=== PATIENT | female | born 1995 | race Caucasian/White ===

== ENCOUNTER 2017-05-05 22:54 | Emergency (ER) | payer MEDICAID ==
[2017-05-05 23:57] VITALS: BP 123/74
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
== END 2017-05-06 01:14 | disposition home or self-care (01) ==
LOC: JP.ED 22:54
DX: O99.89 Other specified diseases and conditions complicating pregnancy, childbirth and the puerperium (principal); M54.5 Low back pain; R10.30 Lower abdominal pain, unspecified; O99.52 Diseases of the respiratory system complicating childbirth; J45.909 Unspecified asthma, uncomplicated; O99.355 Diseases of the nervous system complicating the puerperium; G43.909 Migraine, unspecified, not intractable, without status migrainosus; O99.333 Smoking (tobacco) complicating pregnancy, third trimester; Z79.899 Other long term (current) drug therapy; Z3A.01 Less than 8 weeks gestation of pregnancy
CPT/HCPCS: 81001; 99284

== ENCOUNTER 2017-07-06 07:10 | Emergency (ER) | payer MEDICAID ==
[2017-07-06] MEDS ORDERED: Ondansetron 4 MG/2 ML SDV IVPUSH ONE (07:42)
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
[2017-07-06] MEDS ORDERED: HYDROmorphone 0.5 MG/0.5 ML Syringe IVPUSH ONE (07:44)
[2017-07-06] MEDS ORDERED: Sodium Chloride 0.9% 1,000 ML IV SCH (07:45)
[2017-07-06 09:07] VITALS: BP 99/55
== END 2017-07-06 09:05 | disposition home or self-care (01) ==
LOC: JP.ED 07:10
DX: O99.352 Diseases of the nervous system complicating pregnancy, second trimester (principal); G43.909 Migraine, unspecified, not intractable, without status migrainosus; O99.512 Diseases of the respiratory system complicating pregnancy, second trimester; J45.909 Unspecified asthma, uncomplicated; O99.332 Smoking (tobacco) complicating pregnancy, second trimester; F17.210 Nicotine dependence, cigarettes, uncomplicated; Z79.899 Other long term (current) drug therapy; Z3A.16 16 weeks gestation of pregnancy
CPT/HCPCS: 96361; 96374; 96375; 99284; J1170; J2405; J7040

== ENCOUNTER 2018-01-23 21:25 | Emergency (ER) | payer MEDICAID ==
[2018-01-23 21:53] VITALS: BP 118/71
--- NOTE | 2018-01-23 23:01 | EDM.PDOC ---
ED HPI GENERAL MEDICAL PROBLEM - General Chief Complaint: ENT Problem Stated Complaint: SORE THROAT Time Seen by Provider: 01/23/18 22:56 Source of Information: Reports: Patient History Limitations: Reports: No Limitations - History of Present Illness INITIAL COMMENTS - FREE TEXT/NARRATIVE: pt arrived with a sore throat and swollen glands. She states this started last nite. 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 Onset: Other (last nite. ) Duration: Hour(s): Location: Reports: Neck Associated Symptoms: Reports: Other (pt has a red spot on her left achilles tendon area which is red and tender, She has been having hives . She wonders if this could be a big hive. 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 unsure of her LMP 1-1/2 mo ago Musculoskeletal History: Reports: Back Pain, Chronic Neurological History: Reports: Migraines - Infectious Disease History Infectious Disease History: Reports: C-Difficile - Past Surgical History Musculoskeletal Surgical History: Reports: Other (See Below) Other Musculoskeletal Surgeries/Procedures:: R ULNAR AND RADIUS REPAIR Social & Family History - Tobacco Use Smoking Status *Q: Unknown Ever Smoked Years of Tobacco use: 5 Packs/Tins Daily: 0.5 Used Tobacco, but Quit: No Second Hand Smoke Exposure: Yes - Caffeine Use Caffeine Use: Reports: Soda - Alcohol Use Days Per Week of Alcohol Use: 0 - Recreational Drug Use Recreational Drug Use: No ED ROS ENT - Review of Systems Review Of Systems: See Below Constitutional: Reports: No Symptoms HEENT: Reports: Throat Pain Respiratory: Reports: No Symptoms Cardiovascular: Reports: No Symptoms Endocrine: Reports: No Symptoms GI/Abdominal: Reports: No Symptoms : Reports: No Symptoms Musculoskeletal: Reports: Other ( redness on the ankle. ) Neurological: Reports: No Symptoms ED EXAM, ENT - Physical Exam Exam: See Below Text/Narrative:: pt has a sore throat. She has a red spot on her left achilles area. Exam Limited By: No Limitations General Appearance: Alert, Moderate Distress Ears: Normal TMs Nose: Normal Inspection Mouth/Throat: Throat Pain, Tonsillar Erythema Head: Atraumatic Neck: Lymphadenopathy (R), Lymphadenopathy (L) Respiratory/Chest: No Respiratory Distress Cardiovascular: Regular Rate, Rhythm GI/Abdominal: Soft, Non-Tender (Female) Exam: Deferred Rectal (Female) Exam: Deferred Back: Normal Inspection Extremities: Normal Inspection Neurological: Alert, Oriented, Normal Cognition Psychiatric: Normal Affect Skin: Other ( pt has redness over the left achilles area. ) Course - Vital Signs Last Recorded V/S: Last Vital Signs Temp 36.8 C 01/23/18 21:56 Pulse 70 01/23/18 21:56 Resp 16 01/23/18 21:56 BP 118/71 01/23/18 21:56 Pulse Ox 98 01/23/18 21:56 - Orders/Labs/Meds Orders: Active Orders 24 hr Category Date Time Status CULTURE STREP A CONFIRMATION [] Stat Lab 01/23/18 22:19 Results STREP SCRN A RAPID W CULT CONF [] Stat Lab 01/23/18 22:19 Ordered Labs: Laboratory Tests 01/23/18 Range/Units 22:25 WBC 6.3 (4.5-11.0) K/uL RBC 4.95 (3.30-5.50) M/uL Hgb 12.9 (12.0-15.0) g/dL Hct 39.6 (36.0-48.0) % MCV 80 (80-98) fL MCH 26 L (27-31) pg MCHC 33 (32-36) % Plt Count 232 (150-400) K/uL Neut % (Auto) 46 (36-66) % Lymph % (Auto) 46 H (24-44) % [place] % (Auto) 7 H (2-6) % Eos % (Auto) 2 (2-4) % Baso % (Auto) 0 (0-1) % - Re-Assessments/Exams Free Text/Narrative Re-Assessment/Exam: 01/23/18 23:01 WBC IS 6,400, HER STREPT IS NEG. Departure - Departure Time of Disposition: 23:03 Disposition: Home, Self-Care 01 Condition: Fair Clinical Impression: Cellulitis of ankle, Acute pharyngitis - Discharge Information Referrals: PCP,None [Primary Care Provider] - Forms: ED Department Discharge Care Plan Goals: PUSH FLUIDS, WARM PACK RED AREA ON THE ANKLE, KEFLEX 500MG TID, - My Orders Last 24 Hours: My Active Orders 01/23/18 22:19 CULTURE STREP A CONFIRMATION [RM] Stat STREP SCRN A RAPID W CULT CONF [RM] Stat - Assessment/Plan Last 24 Hours: My Active Orders 01/23/18 22:19 CULTURE STREP A CONFIRMATION [RM] Stat STREP SCRN A RAPID W CULT CONF [RM] Stat
== END 2018-01-23 23:14 | disposition home or self-care (01) ==
LOC: JP.ED 21:25
DX: L03.116 Cellulitis of left lower limb (principal); J02.9 Acute pharyngitis, unspecified; Z77.22 Contact with and (suspected) exposure to environmental tobacco smoke (acute) (chronic)
CPT/HCPCS: 36415; 85025; 87081; 87430; 99283

== ENCOUNTER 2018-03-06 22:39 | Emergency (ER) | payer MEDICAID ==
[2018-03-06 22:51] VITALS: BP 133/82
--- NOTE | 2018-03-06 23:20 | EDM.PDOC ---
ED HPI GENERAL MEDICAL PROBLEM - General Chief Complaint: Lower Extremity Injury/Pain Stated Complaint: RIGHT FOOT SMALL LUMP Time Seen by Provider: 03/06/18 23:15 Source of Information: Reports: Patient History Limitations: Reports: No Limitations - History of Present Illness INITIAL COMMENTS - FREE TEXT/NARRATIVE: pt has a red area on the dorsum of the foot. This started some last nite but is worse today. She does not recall a bite or injury to the sit. The area of redness is about the size of a 50 cent piece. She is tender to palpate. Onset: Other (last nite. 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 unsure of her LMP 1-1/2 mo ago Musculoskeletal History: Reports: Back Pain, Chronic Neurological History: Reports: Migraines - Infectious Disease History Infectious Disease History: Reports: C-Difficile - Past Surgical History Musculoskeletal Surgical History: Reports: Other (See Below) Other Musculoskeletal Surgeries/Procedures:: R ULNAR AND RADIUS REPAIR Social & Family History - Tobacco Use Smoking Status *Q: Never Smoker - Caffeine Use Caffeine Use: Reports: None - Recreational Drug Use Recreational Drug Use: No Review of Systems - Review of Systems Review Of Systems: See Below Constitutional: Reports: No Symptoms Ears: Reports: No Symptoms Nose: Reports: No Symptoms Mouth/Throat: Reports: No Symptoms Respiratory: Reports: No Symptoms Cardiovascular: Reports: No Symptoms GI/Abdominal: Reports: No Symptoms Musculoskeletal: Reports: Other (painful lump on the dorsum of the rt foot. ) Skin: Reports: No Symptoms ED EXAM, GENERAL - Physical Exam Exam: See Below Free Text/Narrative:: pt arrived with a tender red area on the dorsum of the foot. This does feel warm Exam Limited By: No Limitations General Appearance: Alert, Mild Distress Ears: Normal TMs Nose: Normal Inspection Throat/Mouth: Normal Inspection Head: Atraumatic Neck: Normal Inspection Respiratory/Chest: No Respiratory Distress Cardiovascular: Regular Rate, Rhythm GI/Abdominal: Soft, Non-Tender Extremities: Other ( There is a red area on the dorsum of the rt foot that is warm and tender to palpate. She has a blanced area in the center which makes me think this could have been a bite. 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 ) Course - Vital Signs Last Recorded V/S: Last Vital Signs Temp 37.0 C 03/06/18 23:00 Pulse 80 03/06/18 23:00 Resp 13 03/06/18 23:00 BP 133/82 03/06/18 23:00 Pulse Ox 97 03/06/18 23:00 Departure - Departure Time of Disposition: 23:20 Disposition: Home, Self-Care 01 Condition: Fair Clinical Impression: Infected insect bite of right foot - Discharge Information Referrals: Milad Berumen MD [Primary Care Provider] - Care Plan Goals: soak foot bid in warm soapy solution followed by a cool pack, keflex 500mg tid, tylenol and motrin for pain.
== END 2018-03-06 23:35 | disposition home or self-care (01) ==
LOC: JP.ED 22:39
DX: S90.861A Insect bite (nonvenomous), right foot, initial encounter (principal); L08.9 Local infection of the skin and subcutaneous tissue, unspecified; W57.XXXA Bitten or stung by nonvenomous insect and other nonvenomous arthropods, initial encounter
CPT/HCPCS: 99283

== ENCOUNTER 2019-09-26 16:15 | Emergency (ER) | payer SELFPAY ==
[2019-09-26 16:27] VITALS: BP 138/88; PULSE 81
[2019-09-26] MEDS ORDERED: Acetaminophen 325 MG Tab PO ONE (17:03)
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
== END 2019-09-26 17:53 | disposition home or self-care (01) ==
LOC: JP.ED 16:15
DX: S50.02XA Contusion of left elbow, initial encounter (principal); S61.207A Unspecified open wound of left little finger without damage to nail, initial encounter; F17.210 Nicotine dependence, cigarettes, uncomplicated; J45.909 Unspecified asthma, uncomplicated; V89.2XXA Person injured in unspecified motor-vehicle accident, traffic, initial encounter
CPT/HCPCS: 73080; 99283; A9270

== ENCOUNTER 2020-12-27 03:34 | Emergency (ER) | payer MEDICAID ==
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
[2020-12-27] MEDS ORDERED: Sodium Chloride 0.9% 1,000 ML IV SCH (05:00)
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
[2020-12-27] MEDS ORDERED: levETIRAcetam 1,500 MG in Sodium Chloride 0.9% 100 ML IV ONE (05:15)
[2020-12-27] MEDS ORDERED: LORazepam 2 MG/ML SDV IVPUSH ONE (05:23)
[2020-12-27] MEDS ORDERED: LORazepam 2 MG/ML SDV ONE (05:24)
[2020-12-27 05:25] VITALS: BP 113/71; PULSE 94
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
== END 2020-12-27 05:53 ==
LOC: JP.ED 03:34
DX: O9A.211 Injury, poisoning and certain other consequences of external causes complicating pregnancy, first trimester (principal); S80.812A Abrasion, left lower leg, initial encounter; S80.811A Abrasion, right lower leg, initial encounter; Z3A.01 Less than 8 weeks gestation of pregnancy; V48.5XXA Car driver injured in noncollision transport accident in traffic accident, initial encounter
CPT/HCPCS: 36415; 51702; 70450; 71045; 71045-26; 72125; 80053; 80305-QW; 80307; 81001; 81025; 83690; 85025; 96365; 96375; 99291; 99291-25; J1953; J2060; J7030

== ENCOUNTER 2021-09-25 09:16 | Emergency (ER) | payer MEDICAID ==
[2021-09-25] MEDS ORDERED: Prochlorperazine 10 MG/2 ML SDV IVPUSH ONE (09:56)
[2021-09-25] MEDS ORDERED: diphenhydrAMINE 50 MG/ML SDV IVPUSH ONE (09:57)
[2021-09-25] MEDS ORDERED: Ketorolac 30 MG/ML SDV IVPUSH ONE (09:57)
[2021-09-25] MEDS ORDERED: Sodium Chloride 0.9% 1,000 ML IV SCH (10:00)
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
[2021-09-25] MEDS ORDERED: HYDROmorphone 0.5 MG/0.5 ML Syringe IVPUSH ONE (11:35)
[2021-09-25 12:04] VITALS: BP 103/73; PULSE 53
== END 2021-09-25 12:49 | disposition home or self-care (01) ==
LOC: JP.ED 09:16
DX: G43.909 Migraine, unspecified, not intractable, without status migrainosus (principal)
CPT/HCPCS: 96374; 96375; 99283-25; J0780; J1170; J1200; J1885; J7030

== ENCOUNTER 2022-01-27 23:48 | Emergency (ER) | payer MEDICAID ==
[2022-01-28 00:28] VITALS: BP 113/79; PULSE 62
[2022-01-28] MEDS ORDERED: Ketorolac 30 MG/ML SDV IM ONE (00:56)
[2022-01-28 01:21] LABS: CORONAVIRUS COVID-19 NAA POSITIVE (NEGATIVE)
== END 2022-01-28 02:01 | disposition home or self-care (01) ==
LOC: JP.ED 23:48
DX: U07.1 COVID-19 (principal); G43.909 Migraine, unspecified, not intractable, without status migrainosus
CPT/HCPCS: 0241U; 96372; 99281; 99284; J1885

== ENCOUNTER 2022-04-27 22:55 | Emergency (ER) | payer MEDICAID ==
[2022-04-28 00:22] LABS: ESTIMATED GFR 104 mL/min (>60)
[2022-04-28 01:00] VITALS: BP 106/79; PULSE 85
== END 2022-04-28 00:34 | disposition home or self-care (01) ==
LOC: JP.ED 22:55
DX: R10.11 Right upper quadrant pain (principal); Z72.0 Tobacco use
CPT/HCPCS: 36415; 80053; 81001; 81025; 85025; 99284

== ENCOUNTER 2022-11-19 15:45 | Emergency (ER) | payer OTHER, MEDICAID ==
[2022-11-19 16:23] VITALS: BP 123/83; PULSE 52
== END 2022-11-19 17:37 | disposition home or self-care (01) ==
LOC: JP.ED 15:45
DX: S69.92XA Unspecified injury of left wrist, hand and finger(s), initial encounter (principal); J45.909 Unspecified asthma, uncomplicated; Z72.0 Tobacco use; W27.3XXA Contact with needle (sewing), initial encounter; Y92.129 Unspecified place in nursing home as the place of occurrence of the external cause; Y99.0 Civilian activity done for income or pay
CPT/HCPCS: 86317; 86803; 87340; 87449; 99282; 99283

== ENCOUNTER 2023-01-18 14:51 | Emergency (ER) | payer OTHER, MEDICAID ==
[2023-01-18 15:17] VITALS: BP 121/76; PULSE 59
[2023-01-18] MEDS ORDERED: Ketorolac 30 MG/ML SDV IM ONE (15:27)
[2023-01-18 16:07] LABS: ESTIMATED GFR 104 mL/min (>60)
== END 2023-01-18 17:04 | disposition home or self-care (01) ==
LOC: JP.ED 14:51
DX: S20.219A Contusion of unspecified front wall of thorax, initial encounter (principal); J45.909 Unspecified asthma, uncomplicated; V49.10XA Passenger injured in collision with unspecified motor vehicles in nontraffic accident, initial encounter; Y92.410 Unspecified street and highway as the place of occurrence of the external cause
CPT/HCPCS: 36415; 80053; 83605; 85025; 96372; 99284; J1885

== ENCOUNTER 2023-04-16 19:01 | Emergency (ER) | payer MEDICAID ==
[2023-04-16 20:59] VITALS: BP 124/73; PULSE 58
== END 2023-04-16 21:56 | disposition home or self-care (01) ==
LOC: JP.ED 19:01
DX: S01.81XA Laceration without foreign body of other part of head, initial encounter (principal); J45.909 Unspecified asthma, uncomplicated; F17.210 Nicotine dependence, cigarettes, uncomplicated; W22.8XXA Striking against or struck by other objects, initial encounter
CPT/HCPCS: 12011; 99282

== ENCOUNTER 2023-05-09 20:17 | Emergency (ER) | payer MEDICAID ==
[2023-05-09 20:59] VITALS: BP 131/91; PULSE 57
== END 2023-05-09 22:57 | disposition home or self-care (01) ==
LOC: JP.ED 20:17
DX: S93.601A Unspecified sprain of right foot, initial encounter (principal); J45.909 Unspecified asthma, uncomplicated; W20.8XXA Other cause of strike by thrown, projected or falling object, initial encounter
CPT/HCPCS: 73620-26-RT; 73620-RT; 99282; 99283

== ENCOUNTER 2023-10-19 17:19 | Emergency (ER) | payer MEDICAID, OTHER ==
[2023-10-19 17:38] VITALS: BP 114/74; PULSE 83
[2023-10-19] MEDS ORDERED: Ondansetron 4 MG/2 ML SDV IVPUSH ONE (18:15)
[2023-10-19] MEDS ORDERED: Sodium Chloride 0.9% 1,000 ML IV SCH (18:15)
[2023-10-19] MEDS ORDERED: LORazepam 2 MG/ML SDV IVPUSH ONE (18:16)
[2023-10-19 18:27] LABS: BASOPHILS PERCENT AUTO 0.2 % (0.1-1.3); EOSINOPHILS ABSOLUTE AUTO 0.07 K/uL (0.00-0.40); EOSINOPHILS PERCENT AUTO 0.9 % (0.0-5.4); HEMATOCRIT 43.2 % (34.3-46.0); HEMOGLOBIN 15.4 g/dL (11.2-15.5); IMMATURE GRAN PERCENT AUTO 0.2 % (0.0-0.7); LYMPHOCYTES ABSOLUTE AUTO 0.78 K/uL (0.8-3.3); LYMPHOCYTES PERCENT AUTO 9.6 % (11.4-47.7); MEAN CORPUSCULAR HEMOGLOBIN 30.4 pg (31.6-35.5); MEAN CORPUSCULAR HGB CONC 35.6 g/dL (31.6-35.5); MEAN CORPUSCULAR VOLUME 85.4 fL (81.4-99.0); MONOCYTES ABSOLUTE AUTO 0.36 K/uL (0.20-0.90); MONOCYTES PERCENT AUTO 4.4 % (3.3-12.6); NEUTROPHILS ABSOLUTE AUTO 6.89 K/uL (1.0-7.6); NEUTROPHILS PERCENT AUTO 84.7 % (40.0-78.1); PLATELET COUNT,PLT 222 K/uL (130-375); RED BLOOD CELL COUNT 5.06 M/uL (3.77-5.24); WHITE BLOOD CELL COUNT,WBC 8.1 K/uL (3.2-11.0)
[2023-10-19 18:28] LABS: BASOPHILS ABSOLUTE AUTO 0.02 K/uL (0.00-0.10); IMMATURE GRAN ABSOLUTE AUTO 0.02 K/uL (0.00-0.23)
[2023-10-19 18:47] LABS: A/G RATIO 1.5 (1.2-2.2); ALANINE AMINOTRANSFERASE,ALT 33 U/L (12-78); ALBUMIN 4.5 g/dL (3.4-5.0); ALKALINE PHOSPHATASE 48 U/L (46-116); ASPARTATE AMNIOTRANSFERASE,AST 23 U/L (15-37); BILIRUBIN TOTAL 1.8 mg/dL (0.2-1.0); BLOOD UREA NITROGEN,BUN 12 mg/dL (7-18); CALCIUM 8.8 mg/dL (8.5-10.1); CARBON DIOXIDE,CO2 24 mmol/L (21-32); CHLORIDE,CL 100 mmol/L (100-108); CREATININE 0.7 mg/dL (0.6-1.0); EST CRCL DRUG DOSING (CG) 86.44 mL/min; ESTIMATED GFR 121 mL/min (>60); GLUCOSE RANDOM 101 mg/dL (74-106); POTASSIUM,K 3.5 mmol/L (3.6-5.2); PROTEIN TOTAL,TP 7.6 g/dL (6.4-8.2); SODIUM,NA 136 mmol/L (140-148)
[2023-10-19 18:52] LABS: ANION GAP 15.5 mmol/L (5.0-14.0)
[2023-10-19 18:54] LABS: APPEARANCE,URINE CLEAR (CLEAR); BILIRUBIN,URINE NEGATIVE (NEGATIVE); COLOR,URINE YELLOW (YELLOW); GLUCOSE,URINE NEGATIVE (NEGATIVE); KETONES,URINE 40 mg/dL (NEGATIVE); LEUKOCYTE ESTERASE,URINE NEGATIVE (NEGATIVE); NITRITE,URINE NEGATIVE (NEGATIVE); OCCULT BLOOD,URINE NEGATIVE (NEGATIVE); PROTEIN,URINE NEGATIVE (NEGATIVE); UROBILINOGEN,URINE 0.2 EU/dL (0.2-1.0)
[2023-10-19 19:10] LABS: BACTERIA,URINE RARE; EPITHELIAL CELLS,URINE RARE; RBC,URINE 0-5 (0-5); WBC,URINE NOT SEEN (0-5)
[2023-10-19 19:11] LABS: AMORPHOUS SEDIMENT,URINE NOT SEEN; MUCUS,URINE RARE
[2023-10-19 19:28] LABS: CORONAVIRUS COVID-19 NAA NEGATIVE (NEGATIVE); INFLUENZA A NAA NEGATIVE (NEGATIVE); INFLUENZA B NAA NEGATIVE (NEGATIVE); RESPIRATORY SYNCYTIAL VIR NAA NEGATIVE (NEGATIVE)
== END 2023-10-19 20:34 | disposition home or self-care (01) ==
LOC: JP.ED 17:19
DX: E86.0 Dehydration (principal); B34.9 Viral infection, unspecified; Z20.822 Contact with and (suspected) exposure to COVID-19
CPT/HCPCS: 0241U; 36415; 80053; 81001; 85025; 96361; 96374; 96375; 99284; J2060; J2405; J7030

== ENCOUNTER 2024-03-29 00:33 | Emergency (ER) | payer MEDICAID ==
[2024-03-29 00:41] VITALS: BP 119/83; PULSE 83
== END 2024-03-29 02:08 | disposition home or self-care (01) ==
LOC: JP.ED 00:33
DX: B27.90 Infectious mononucleosis, unspecified without complication (principal); Z86.16 Personal history of COVID-19
CPT/HCPCS: 87651-QW; 99283

== ENCOUNTER 2025-04-23 08:32 | Emergency (ER) | payer MEDICAID ==
[2025-04-23] MEDS: Ondansetron 4 MG/2 ML SDV IVPUSH ONE (09:38)
[2025-04-23 11:55] VITALS: BP 107/74; PULSE 57
== END 2025-04-23 12:13 | disposition home or self-care (01) ==
LOC: JP.ED 08:32
DX: O21.9 Vomiting of pregnancy, unspecified (principal); F17.200 Nicotine dependence, unspecified, uncomplicated; Z79.899 Other long term (current) drug therapy; Z3A.09 9 weeks gestation of pregnancy; Z86.16 Personal history of COVID-19
CPT/HCPCS: 96361; 96374; 99283; J2405; J7030

== ENCOUNTER 2025-05-06 04:53 | Emergency (ER) | payer MEDICAID ==
[2025-05-06 05:00] VITALS: BP 131/96; PULSE 58
== END 2025-05-06 06:10 | disposition home or self-care (01) ==
LOC: JP.ED 04:53
DX: G43.909 Migraine, unspecified, not intractable, without status migrainosus (principal); Z79.899 Other long term (current) drug therapy; Z86.16 Personal history of COVID-19
CPT/HCPCS: 96372; 99283; J2765

== ENCOUNTER 2025-07-24 07:56 | Emergency (ER) | payer MEDICAID ==
[2025-07-24 08:09] VITALS: BP 109/65; PULSE 69
== END 2025-07-24 08:58 | disposition home or self-care (01) ==
LOC: JP.ED 07:56
DX: R51.9 Headache, unspecified (principal); K21.9 Gastro-esophageal reflux disease without esophagitis; Z79.899 Other long term (current) drug therapy; Z86.16 Personal history of COVID-19; Z87.891 Personal history of nicotine dependence
CPT/HCPCS: 99283

== ENCOUNTER 2025-07-24 15:45 | Emergency (ER) | payer MEDICAID ==
[2025-07-24] MEDS: diphenhydrAMINE 50 MG/ML SDV IVPUSH ONE (16:45)
[2025-07-24 17:39] VITALS: BP 112/75; PULSE 71
== END 2025-07-24 18:00 | disposition home or self-care (01) ==
LOC: JP.ED 15:45
DX: G44.89 Other headache syndrome (principal); J45.909 Unspecified asthma, uncomplicated; K21.9 Gastro-esophageal reflux disease without esophagitis; Z86.16 Personal history of COVID-19; Z79.899 Other long term (current) drug therapy
CPT/HCPCS: 96361; 96374; 96375; 99283; J1200; J1790; J7030

== ENCOUNTER 2025-10-17 03:54 | Emergency (ER) | payer MEDICAID ==
[2025-10-17] MEDS: Alum Hydrox/Mag Hydrox/Simeth 15 ML, Lidocaine 2% 15 ML PO ONE (04:47)
[2025-10-17 04:55] LABS: BASOPHILS PERCENT AUTO 0.2 % (0.1-1.3); EOSINOPHILS PERCENT AUTO 0.2 % (0.0-5.4); IMMATURE GRAN PERCENT AUTO 0.4 % (0.0-0.7); LYMPHOCYTES ABSOLUTE AUTO 0.51 K/uL (0.8-3.3); LYMPHOCYTES PERCENT AUTO 9.6 % (11.4-47.7); MONOCYTES ABSOLUTE AUTO 0.22 K/uL (0.20-0.90); MONOCYTES PERCENT AUTO 4.1 % (3.3-12.6); NEUTROPHILS ABSOLUTE AUTO 4.54 K/uL (1.0-7.6); NEUTROPHILS PERCENT AUTO 85.5 % (40.0-78.1); PLATELET COUNT,PLT 172 K/uL (130-375); RED BLOOD CELL COUNT 3.79 M/uL (3.77-5.24); WHITE BLOOD CELL COUNT,WBC 5.3 K/uL (3.2-11.0)
[2025-10-17] MEDS: Ondansetron 4 MG/2 ML SDV IVPUSH ONE (04:57)
[2025-10-17 05:07] LABS: BASOPHILS ABSOLUTE AUTO 0.01 K/uL (0.00-0.10); EOSINOPHILS ABSOLUTE AUTO 0.01 K/uL (0.00-0.40); IMMATURE GRAN ABSOLUTE AUTO 0.02 K/uL (0.00-0.23)
[2025-10-17 05:16] LABS: A/G RATIO 0.7 (1.2-2.2); ALANINE AMINOTRANSFERASE,ALT 19 U/L (12-78); ASPARTATE AMNIOTRANSFERASE,AST 23 U/L (15-37); BILIRUBIN TOTAL 0.8 mg/dL (0.2-1.0); BLOOD UREA NITROGEN,BUN 7 mg/dL (7-18); CARBON DIOXIDE,CO2 24 mmol/L (21-32); CHLORIDE,CL 106 mmol/L (100-108); CREATININE 0.4 mg/dL (0.6-1.0); EST CRCL DRUG DOSING (CG) 149.06 mL/min; ESTIMATED GFR 137 mL/min (>60); GLUCOSE RANDOM 90 mg/dL (74-106); POTASSIUM,K 3.3 mmol/L (3.6-5.2); PROTEIN TOTAL,TP 6.0 g/dL (6.4-8.2); SODIUM,NA 139 mmol/L (140-148)
[2025-10-17 05:29] VITALS: BP 97/66; PULSE 83
[2025-10-17 05:31] LABS: APPEARANCE,URINE CLEAR (CLEAR); GLUCOSE,URINE NEGATIVE (NEGATIVE); OCCULT BLOOD,URINE NEGATIVE (NEGATIVE)
[2025-10-17 05:43] LABS: SQUAMOUS EPITHELIAL CELLS,UR FEW /HPF; UROTHELIAL CELLS,URINE NOT SEEN /HPF
== END 2025-10-17 06:06 | disposition home or self-care (01) ==
LOC: JP.ED 03:54
DX: O99.613 Diseases of the digestive system complicating pregnancy, third trimester (principal); K21.9 Gastro-esophageal reflux disease without esophagitis; O99.891 Other specified diseases and conditions complicating pregnancy; R07.9 Chest pain, unspecified; Z79.899 Other long term (current) drug therapy; Z3A.36 36 weeks gestation of pregnancy
CPT/HCPCS: 36415; 80053; 81001; 85025; 96361; 96374; 99284; J2405; J3490; J7030; A9270-GY